=== PATIENT | male | born 1930 | race Caucasian/White ===

== ENCOUNTER 2016-07-17 10:28 | Emergency (ER) | payer MEDICARE, OTHER ==
[~2016-07-17] VITALS: Ht 172.7 cm; Wt 59.0 kg
--- NOTE | 2016-07-17 11:05 | NUR ---
Patient discharged to home in stable conditon. Written and verbal after care instructions given to patient & caregiver. Patient and caregiver verbalized understanding of instructions.
== END 2016-07-17 11:12 | disposition home or self-care (01) ==
LOC: ER 10:28
DX: K40.90 Unilateral inguinal hernia, without obstruction or gangrene, not specified as recurrent (principal); G20 Parkinson's disease; Z86.73 Personal history of transient ischemic attack (TIA), and cerebral infarction without residual deficits
CPT/HCPCS: A4663